=== PATIENT | female | born 1995 | race Caucasian/White ===

== ENCOUNTER 2020-06-17 10:10 | Emergency (ER) | payer OTHER, SELFPAY ==
[2020-06-17 10:18] VITALS: BP 131/72; PULSE 84; RESP 16; TEMP 36.7; O2SAT 100
--- NOTE | 2020-06-17 10:23 | ED.EAR ---
HPI - Ear Problem General Chief complaint: Ear Stated complaint: ear pain/pressure/sinus drainage Time Seen by Provider: 06/17/20 10:23 Source: patient and RN notes reviewed History of Present Illness HPI Narrative: Patient is a 25-year-old female who presents the urgent care with complaints of bilateral ear pressure, postnasal drainage and a slight scratchy throat with sinus congestion. Patient states that her right ear started hurting on Wednesday and she noticed bilateral pain more recently. Patient states that she took Claritin last night which seems to help with some postnasal drainage but otherwise ear pressure is still consistent. Denies of any known fever, nausea, vomiting, cough, shortness of breath. 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 No other acute complaints. No acute distress noted. Patient aware of the plan of care. Some parts of this dictation were generated by voice recognition software and may contain typographical and/or grammatical inaccuracies. Related Data Home Medications Medication Instructions Recorded Confirmed drospirenone-ethinyl estradiol 1 tablet PO DAILY 06/17/20 06/17/20 [Darian (28)] Allergies Allergy/AdvReac Type Severity Reaction Status Date / Time No Known Allergies Allergy Unverified 08/16/17 16:26 Review of Systems Review of Systems: Narrative: CONSTITUTIONAL: Denies fever, chills, or sweats. EYES: Denies visual changes, redness, or discharge. ENT: Reports a mild sore throat, sinus congestion, postnasal drainage and bilateral otalgia CARDIOVASCULAR: Denies chest pain, palpitations, or edema. RESPIRATORY: Denies cough or dyspnea. GASTROINTESTINAL: Denies abdominal pain, nausea, vomiting, or diarrhea. GENITOURINARY: Denies dysuria or hematuria. SKIN: Denies rash or itching. MUSCULOSKELETAL: Denies back pain, joint pain, or myalgia. NEUROLOGIC: Denies headache, numbness, or weakness. All other systems reviewed are negative, except as documented in HPI. PMFSH Social History Social History Gender identity (if verbalized by the patient): Female Comments At the time of my signature, I reviewed and agree with the nursing past medical, surgical, social, and family history. There is no relevant family history pertinent to the patient complaint. Exam Narrative: Exam Narrative: GENERAL: This is a well-nourished, well-developed patient, in no apparent distress. HEAD: normocephalic, atraumatic. EYES: PERRL. Sclera clear/white. Vision is grossly intact. EARS: External ears normal, auditory canals clear and without drainage, mild fluid noted behind left TM without otitis, bilateral TMs normal without perforation. Hearing grossly intact. NOSE: External nose normal with no obvious nasal discharge, nares without redness, no rhinorrhea. THROAT: Mucous membranes moist, posterior pharynx clear. Mild postnasal drainage without erythema, edema or exudate NECK: Neck supple, non-tender without lymphadenopathy CARDIOVASCULAR: Regular rate and rhythm without murmurs, gallops, or rubs. RESPIRATORY: Clear to auscultation. Breath sounds equal bilaterally. No wheezes, rales, or rhonchi. SKIN: warm, intact with no suspicious lesions or rash, good texture and turgor. NEURO: awake, alert, and oriented to person, place and time. There were no obvious focal neurologic abnormalities. EXTREMITIES: No clubbing, cyanosis, or edema. Course Vital Signs Vital signs: Vital Signs Temperature 98.0 F 06/17/20 10:18 Pulse Rate 84 06/17/20 10:18 Respiratory Rate 16 06/17/20 10:18 Blood Pressure 131/72 06/17/20 10:18 Pulse Oximetry 100 06/17/20 10:18 Temperature 98.0 F 06/17/20 10:18 Pulse Rate 84 06/17/20 10:18 Respiratory Rate 16 06/17/20 10:18 Blood Pressure 131/72 06/17/20 10:18 Pulse Oximetry 100 06/17/20 10:18 Reviewed Medical Decision Making MDM Narrative Medical decision making narrative: Advised the patient to take Claritin
== END 2020-06-17 10:35 | disposition home or self-care (01) ==
PROVIDERS: Emergency Provider Nurse Practitioner Family
DX: H92.03 Otalgia, bilateral (principal); J30.9 Allergic rhinitis, unspecified
CPT/HCPCS: 99211; G0463